=== PATIENT | female | born 1985 | race Caucasian/White ===

== ENCOUNTER 2018-04-15 09:56 | Emergency (ER) | payer OTHER ==
--- OUTSIDE RECORDS SUMMARY | 2018-04-15 10:02 | XMS REPORT ---
:1985 External Reference #:[id number] Author Organization [facility] Address [address] [place] [id number] Phone [phone] Care Team Providers Name Role Phone Keyur Santiago J., D.O. Primary Care Physician Unavailable Payers Type Date Identification Numbers Payment Provider Subscriber Commercial Effective: Policy Number: [id number] [employer] Mikala Posadas 2014 Healthcare Group Number: [id number] [address] Group Name: [place] [address] PayID: [id number] Problems Date Description Provider Status Onset: 03/25/2018 Cough Lulu Fagan M.D. Active Onset: 03/25/2018 Allergic rhinitis Lulu Fagan M.D. 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 Home Environment Mattress is 1 year old Home Environment Mattress is not encased in an allergy proof case Home Environment Regular Mattress Home Environment Pillows are not encased in an allergy proof case Home Environment Pillows contain feathers Home Environment Uses a dehumidifier Home Environment There are draperies in the home Home Environment The home is james Home Environment The floors are wood Home Environment Uses baseboard heating Home Environment [place] Home Environment Water Source: Well Smoke-Free Home is smoke-free Smoke-Free Work is smoke-free 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 day Vital Signs Date Vital Result Comment 03/25/2018 Height 63 inches 5'3" Weight 198.00 lb Weight in kg's 89.813 Respiratory Rate 18 /min Heart Rate 95 /min O2 % BldC Oximetry 98 % BP Systolic 108 mmHg BP Diastolic 65 mmHg BMI (Body Mass Index) 35.1 kg/m2 Results Description No Information Procedures Date CPT Code Description Status 03/25/2018 52797 Skin Test Scratch # Of Units ____ Completed 03/25/2018 78783 Pre PFT Completed Encounters Type Date Location Provider CPT E/M Dx Office Visit 03/25/2018 9:40a [place] Lulu Fagan M.D. [address] J30.9 R05 Plan of Care Future Appointment(s):04/10/2018 8:40 am - NAVEEN Freeman at [id number]/2017 - Lulu Fagan M.D.J30.9 Allergic rhinitis, unspecifiedRecommendations:Prick Skin Test - Seasonal and Environmental Environmental controls reviewed recommend Charisse (Fexofenadine) 180 mg once daily or Zyrtec (Cetirizine) 10 mg as needed use Flonase daily if you decide to start Risks/benefits of IT [id number] CoughFollow up:2 weeks, *DISCUSSION : After the evaluation is completed, the results and treatment choices will be explained.Recommendations:Refrain from wearing perfumes/scented colognes while visiting our office. prePFT is normal Cough likely due to PND
--- OUTSIDE RECORDS SUMMARY | 2018-04-15 10:02 | XMS REPORT | Continuity of Care Document ---
:1985 External Reference #:[id number] Author Name Lulu Fagan M.D. Address [address] [facility] [place] [address] Care Team Providers Name Role Phone Keyur Santiago J., D.O. Primary Care Physician Unavailable Payers Type Date Identification Numbers Payment Provider Subscriber Effective: Policy Number: [id number] [facility] Mikala Posadas 2014 Group Number: [id number] [address] PayID: [id number] [place] [address] Advance Directives Description No Information Available Problems Date Description Provider Status Onset: 03/25/2018 Cough Lulu Fagan M.D. Active Onset: 03/25/2018 Allergic rhinitis Lulu Fagan M.D. 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 Fluticasone 00// Active Suspension 50mcg/Act 1 squirt Unknown Propionate 0000 each nostril daily Immunizations Description No Information Available Vital Signs Date Vital Result Comment 04/10/2018 8:45am Height 63 inches 5'3" Weight 198.00 lb Weight 89.813 kg Respiratory Rate 20 /min Heart Rate 79 /min O2 % BldC Oximetry 98 % BP Systolic 132 mmHg BP Diastolic 87 mmHg BMI (Body Mass Index) 35.1 kg/m2 03/25/2018 9:45am Height 63 inches 5'3" Weight 198.00 lb Weight 89.813 kg Respiratory Rate 18 /min Heart Rate 95 /min O2 % BldC Oximetry 98 % BP Systolic 108 mmHg BP Diastolic 65 mmHg BMI (Body Mass Index) 35.1 kg/m2 Results Description No Information Available Procedures Date Code Description Status 03/25/2018 75029 Skin Test Scratch # Of Units ____ Completed 03/25/2018 66989 Pre PFT Completed Encounters Type Date Location Provider Dx Diagnosis Office Visit 04/10/2018 [place] Rocio Freeman30.9 Allergic rhinitis, 8:40a NAVEEN unspecified R05 Cough J30.81 Allergic rhinitis due to animal (cat) (dog) hair and dander J30.2 Other seasonal allergic rhinitis J30.1 Allergic rhinitis due to pollen Office Visit 03/25/2018 9:40a [place] Lulu Fagan J30.9 Allergic rhinitis, M.DJohn unspecified R05 Cough Plan of Treatment Future Appointment(s):08/14/2018 8:40 am - NAVEEN Freeman at [id number] - CHRISTINE Freeman-CJ30.9 Allergic rhinitis, [id number] AjwagS72.81 Allergic rhinitis due to animal (cat) (dog) hair and xguabsI28.2 Other seasonal allergic mqugjgxqC51.1 Allergic rhinitis due to pollenFollow up: 4 monthsRecommendations:Continue all medications as prescribed.Refrain from wearing perfumes/scented colognes while visitingour office. Continue the fexofenadine 1 daily Continue the fluticasone 2 sprays daily Use the Proair 2 puffs every 4 hours as needed for cough, shortness of breath, chest congestion and wheezing.Monitor Albuterol use. If using more than 2x/week, please call the office as your asthma medications mayneed to be adjusted. Discussed the three ways in which allergies are managed: (1) avoidance measures; (2) medications; (3 ) allergy immunotherapy. Discussed environmental controls. -Dust mite control barriers are recommended for mattress and pillows. Make sure the product specifies a pore size rating of 2-5 microns. Bigger and unspecified pore sizes may not be effective. -Wash all bedding in hot water once weekly. - Keep bedroom humidity below 50%. Dust mites thrive well in high humidity. Call the office if want to start the shots
[2018-04-15 10:49] VITALS: BP 120/77
--- NOTE | 2018-04-15 11:33 | UC ---
Psychiatric Complaint HPI - HPI Summary HPI Summary: 32 presents with complaints of long-standing anxiety that she attributes to a hostile work environment. She reports that she is having anxiety attacks on an almost daily basis. Most frequently occurring in the morning when she wakes and begins thinking about having to go to work. She describes these episodes as an overwhelming feeling associated with crying, heart racing, nausea, and occasional dry heaves. She is presently seeing a counselor through her employee assistance program at work. She attempted to contact her primary care provider today to discuss possible medical treatment and leave from work however was told that there were no available appointments and instructed to come to convenient care. She denies fever, chills, chest pain, shortness of breath, abdominal pain, or thoughts of suicidal or homicidal ideation. - History Of Current Complaint Chief Complaint: UCAlteredMentalStatus Stated Complaint: ANXIETY Time Seen by Provider: 04/15/18 11:08 Hx Obtained From: Patient Hx Last Menstrual Period: 04/06/18 Timing: Frequency Of Episodes - daily Severity Currently: None - Minutes 3 Character: Anxious Aggravating Factor(s): Nothing Alleviating Factor(s): Nothing Associated Signs And Symptoms: Negative Related History: Negative For: Prior Psychiatric Issues Recent Stressor(s): Work related - Risk Factor(s) Completed Suicide Risk Factors: Negative - Allergies/Home Medications Allergies/Adverse Reactions: Allergies Allergy/AdvReac Type Severity Reaction Status Date / Time tioconazole Allergy See Comment Verified 04/15/18 10:50 [From Monistat 1 (tioconazole)] Home Medications: Home Medications Fluticasone Propionate [Flonase Allergy Relief] 50 mcg NA 04/15/18 [History] PMH/Surg Hx/FS Hx/Imm Hx Previously Healthy: Yes - Denies significant PMH - Surgical History Surgical History: None - Family History Known Family History: Positive: Cardiac Disease, Hypertension, Other - Anxiety disorder - mother - Social History Occupation: Employed Full-time Lives: With Family Alcohol Use: Rare Substance Use Type: None Smoking Status (MU): Never Smoked Tobacco Review of Systems Constitutional: Negative Respiratory: Negative Cardiovascular: Palpitations Gastrointestinal: Vomiting, Nausea Genitourinary: Negative Psychological: Anxious, Depressed Is Patient Immunocompromised?: No All Other Systems Reviewed And Are Negative: Yes Physical Exam Triage Information Reviewed: Yes Appearance: Well-Appearing, No Pain Distress, Obese Vital Signs: Initial Vital Signs Temp 97.8 F 04/15/18 10:16 Pulse 92 04/15/18 10:16 Resp 18 04/15/18 10:16 BP 120/77 04/15/18 10:16 Pulse Ox 99 04/15/18 10:16 Vital Signs Reviewed: Yes ENT: Positive: Hearing grossly normal, Pharynx normal, TMs normal, Uvula midline Neck: Positive: Supple, Nontender, No Lymphadenopathy, Other: - No thyroid enlargement, nodules, or goiter Respiratory: Positive: Lungs clear, Normal breath sounds, No respiratory distress Cardiovascular: Positive: RRR, No Murmur, Pulses Normal, Brisk Capillary Refill Abdomen Description: Positive: Nontender, No Organomegaly, Soft. Negative: Distended, Guarding Neurological: Positive: Alert Psychological: Positive: Other: - Appropriate mood and affect Skin Exam: Normal Psych Complaint Course/Dx - Course Course Of Treatment: 32-year-old female with a long-standing history of anxiety that she relates to a hostile work environment. States her symptoms have become more severe and is now having anxiety attacks on a nearly daily basis. Denies any suicidal or homicidal ideations. She is seeking counseling through her employee assistance program. She contacted her primary care providers today but was unable to schedule appointment at this time. Was instructed to come to community care for evaluation. Her history and symptoms are consistent with an anxiety disorder likely with some depression. Cannot rule out an underlying medical condition such as an arrhythmia or thyroid disease that may be contributing to her symptoms. I'll provide her with a short-term course of hydroxyzine to use for her anxiety attacks. She is to continue with counseling and follow-up with her primary care provider within the next week for further evaluation. She is requesting a dose of Diflucan for a vaginal yeast infection she states she is allergic to [id number] Monistat. I will also provide this to her at this time. reviewed warning symptoms that require immediate evaluation of emergency room the patient. She verbalizes understanding and agrees with plan of care. - Differential Dx/Diagnosis Differential Diagnosis/HQI/PQRI: Anxiety, Depression, Other - arrythmia, thyroid disease Provider Diagnoses: anxiety Discharge - Sign-Out/Discharge Documenting (check all that apply): Patient Departure All imaging exams completed and their final reports reviewed: No Studies - Discharge Plan Condition: Stable Disposition: HOME Prescriptions: Fluconazole [Diflucan 150 MG (NF)] 150 mg PO ONCE #1 tab hydrOXYzine HCl [Hydroxyzine HCl] 50 mg PO Q6HR PRN #28 tablet PRN Reason: Anxiety Patient Education Materials: Anxiety (ED) Forms: *Work Release Referrals: No Primary Care Phys,NOPCP [Primary Care Provider] - Additional Instructions: Based on her history and physical your symptoms appear to be related to some situational anxiety however he will need to be evaluated by her primary care provider to rule out any underlying medical conditions as we are unable to perform the necessary testing in the [facility]. I have provided she with a prescription for hydroxyzine 50 mg 1 tablet every 6 hours as needed for anxiety. Be aware that this medication does cause drowsiness and he should not drive or operate machinery after taking. Continue to follow-up with your counselor as directed. Follow-up with your primary care provider within the next week. Seek immediate medical attention in the emergency room if you develop any chest pain, have the sensation that your heart is racing or skipping beats, shortness of breath, become weak or dizzy, or have any thoughts of wanting to hurt herself or others. - Billing Disposition and Condition Condition: STABLE Disposition: Home
== END 2018-04-15 11:51 | disposition home or self-care (01) ==
LOC: UCEAST 09:56
DX: F41.9 Anxiety disorder, unspecified (principal); B37.3 Candidiasis of vulva and vagina; Z91.09 Other allergy status, other than to drugs and biological substances
CPT/HCPCS: 99212; G0463